=== PATIENT | male | born 1990 | race Caucasian/White ===

== ENCOUNTER 2018-05-07 13:19 | Observation (INO) | payer OTHER ==
[~2018-05-07] VITALS: Ht 185.4 cm; Wt 100.2 kg
[2018-05-07 14:00] LABS: HEMATOCRIT 44.9 % (38.0-50.0); HEMOGLOBIN 15.2 G/DL (12.5-16.6); MCH 27.8 PG (29.0-34.0); MCHC 33.9 G/DL (30.0-36.0); MCV 82.1 FL (86-99); PLATELET COUNT 271 K/uL (156-360); RBC DIS.WIDTH-CV 13.1 % (11.8-14.6); RBC DIS.WIDTH-SD 38.6 % (39-53); RED BLOOD COUNT 5.47 M/uL (4.00-5.50); WHITE BLOOD COUNT 10.1 K/uL (4.1-10.2)
[2018-05-07 14:09] LABS: CHLORIDE 101 mEq/L (99-109); POTASSIUM 3.7 mEq/L (3.7-5.4); SODIUM 142 mEq/L (136-147)
[2018-05-07 14:11] LABS: GLUCOSE 130 mg/dL (70-99)
[2018-05-07 14:15] LABS: CREATININE 1.2 mg/dL (0.6-1.3); UREA NITROGEN (BUN) 10 mg/dL (9-23)
[2018-05-07 14:17] LABS: GFR ESTIMATE (CALCULATED) > 59 mL/min/ (58.99-99999)
[2018-05-07 14:21] LABS: TROP-I INTERPRETATION NEGATIVE; TROPONIN-I < 0.01 ng/mL (0.0-0.30)
[2018-05-07 14:59] LABS: CREATINE KINASE 60 IU/L (1-294)
[2018-05-07 15:43] LABS: APPEARANCE CLEAR ((CLEAR)); BILIRUBIN NEGATIVE; BLOOD LARGE; COLOR YELLOW ((YELLOW)); GLUCOSE (STRIP) NEGATIVE; KETONES NEGATIVE; LEUKOCYTES SMALL; NITRITE NEGATIVE; PROTEIN (STRIP) NEGATIVE; SPECIFIC GRAVITY 1.013 (1.000-1.030); UROBILINOGEN 0.2 MG/DL (0.2-1.0)
[2018-05-07 15:50] LABS: BACTERIA RARE /HPF; EPITHELIAL CELLS RARE /HPF; MUCUS TRACE /LPF; UCUL ADDED? NO; WHITE BLOOD CELLS 0-5 /HPF (0-5)
[2018-05-07 16:02] LABS: AMPHETAMINE NEGATIVE (500 ng/mL); BARBITURATES NEGATIVE (200 ng/mL); BENZODIAZEPINES PRESUMPTIVE POSITIVE (150 ng/mL); BUPRENORPHINE NEGATIVE (10 ng/mL); COCAINE NEGATIVE (150 ng/mL); METHADONE NEGATIVE (200 ng/mL); METHAMPHETAMINE NEGATIVE (500 ng/mL); OPIATES (MORPHINE) NEGATIVE (100 ng/mL); OXYCODONE NEGATIVE (100 ng/mL); PHENCYCLIDINE NEGATIVE (25 ng/mL); PROPOXYPHENE NEGATIVE (300 ng/mL); THC CANNABINOIDS NEGATIVE (50 ng/mL); TRICYCLIC ANTIDEPRESSANTS NEGATIVE (300 ng/mL)
[2018-05-07] MEDS ORDERED: CARTIA XT120 MG PO (16:30)
[2018-05-07] MEDS ORDERED: PERCOCET 5/31 TABLET PO (16:30)
[2018-05-07] MEDS ORDERED: LASIX40 MG PO (16:32)
[2018-05-07] MEDS ORDERED: TOPROL XL200 MG PO (16:32)
[2018-05-07] MEDS ORDERED: COZAAR50 MG PO (16:32)
[2018-05-07] MEDS ORDERED: KLONOPIN1 MG PO (16:33)
[2018-05-07] MEDS ORDERED: ALDACTONE25 MG PO (16:33)
[2018-05-07] MEDS ORDERED: DAILY VALUE1 EACH PO (16:33)
[2018-05-07] MEDS ORDERED: AMBIEN CR12.5 MG PO (16:33)
[2018-05-07] MEDS ORDERED: LAMICTAL150 M1 PO (16:33)
[2018-05-07 16:51] LABS: BENZODIAZEPINES, URINE SCREEN POSITIVE (200 ng/mL)
[2018-05-07 17:27] VITALS: BP 127/73
[2018-05-07 18:56] LABS: TROP-I INTERPRETATION NEGATIVE; TROPONIN-I < 0.01 ng/mL (0.0-0.30)
[2018-05-08 00:27] VITALS: BP 129/62
[2018-05-08 01:24] LABS: TROP-I INTERPRETATION NEGATIVE; TROPONIN-I < 0.01 ng/mL (0.0-0.30)
[2018-05-08 01:30] VITALS: BP 132/83
[2018-05-08 05:48] LABS: HEMATOCRIT 34.6 % (38.0-50.0); HEMOGLOBIN 11.1 G/DL (12.5-16.6); MCH 26.8 PG (29.0-34.0); MCHC 32.1 G/DL (30.0-36.0); MCV 83.6 FL (86-99); PLATELET COUNT 205 K/uL (156-360); RBC DIS.WIDTH-CV 13.1 % (11.8-14.6); RBC DIS.WIDTH-SD 39.8 % (39-53); RED BLOOD COUNT 4.14 M/uL (4.00-5.50); WHITE BLOOD COUNT 6.2 K/uL (4.1-10.2)
[2018-05-08 05:54] LABS: CHLORIDE 103 MEQ/L (99-109); CREATININE 0.9 MG/DL (0.6-1.3); GFR ESTIMATE (CALCULATED) > 59 mL/min/ (58.99-99999); POTASSIUM 3.5 MEQ/L (3.7-5.4); SODIUM 142 MEQ/L (136-147); UREA NITROGEN (BUN) 13 mg/dL (9-23)
[2018-05-08 05:55] LABS: GLUCOSE 94 mg/dL (70-99)
[2018-05-08] MEDS ORDERED: LAMOTRIGINE150 MG PO (10:55)
[2018-05-08] MEDS ORDERED: LOPRESSOR25 MG PO (15:01)
[2018-05-08 15:45] VITALS: BP 137/74
== END 2018-05-08 17:20 | disposition home or self-care (01) ==
LOC: EME 13:19 → EDOF 16:27 → ENRESERV 16:32 → 4SOUTH 17:08
PROVIDERS: Emergency Medicine; Internal Medicine
DX: R55 Syncope and collapse (principal); I49.8 Other specified cardiac arrhythmias; I47.2 Ventricular tachycardia; Z86.74 Personal history of sudden cardiac arrest; Z95.810 Presence of automatic (implantable) cardiac defibrillator; I11.0 Hypertensive heart disease with heart failure; I50.22 Chronic systolic (congestive) heart failure; G40.909 Epilepsy, unspecified, not intractable, without status epilepticus; E78.5 Hyperlipidemia, unspecified; R31.9 Hematuria, unspecified; Z87.891 Personal history of nicotine dependence; Z82.49 Family history of ischemic heart disease and other diseases of the circulatory system; W10.9XXA Fall (on) (from) unspecified stairs and steps, initial encounter; Z88.0 Allergy status to penicillin
CPT/HCPCS: 70450; 71046; 71260; 72125; 72129; 72131; 72132; 74177; 80048; 81003; 82550; 83605; 84484; 84999; 85027; 85379; 87040; 93005; 99281; 99285; G0378; J1200; J1644; J1885; J2405; J3010; J7030; J7120